=== PATIENT | male | born 1990 | race Caucasian/White ===

== ENCOUNTER 2020-01-24 10:40 | Emergency (ER) | payer SELFPAY ==
[2020-01-24 10:46] VITALS: BP 141/81; PULSE 91; RESP 18; TEMP 37.1; O2SAT 100
--- NOTE | 2020-01-24 10:52 | ED.WOUNDLAC ---
HPI - Wound/Laceration General Chief Complaint: Extremity Injury, Upper Stated Complaint: Left pinky lac Time Seen by Provider: 01/24/20 10:52 Source: patient and RN notes reviewed History of Present Illness HPI narrative: Patient is a 29-year-old male who presents the urgent care with complaints of a laceration to the left pinky finger. Patient states that he was using a punch box tender at home and lacerated the left fifth digit. Patient is unsure if he is up-to-date on his tetanus but does not currently want a tetanus shot. No other acute complaints. No acute distress noted. Patient aware of the plan of care. Related Data Home Medications Medication Instructions Recorded Confirmed No Home Medications 01/24/20 01/24/20 Allergies Allergy/AdvReac Type Severity Reaction Status Date / Time No Known Allergies Allergy Verified 01/24/20 11:12 Review of Systems Review of Systems: Narrative: CONSTITUTIONAL: Denies fever, chills, or sweats. EYES: Denies visual changes, redness, or discharge. ENT: Denies rhinorrhea, congestion, sore throat, or otalgia. CARDIOVASCULAR: Denies chest pain, palpitations, or edema. RESPIRATORY: Denies cough or dyspnea. GASTROINTESTINAL: Denies abdominal pain, nausea, vomiting, or diarrhea. GENITOURINARY: Denies dysuria or hematuria. SKIN: Reports of a laceration to the left fifth digit MUSCULOSKELETAL: Denies back pain, joint pain, or myalgia. NEUROLOGIC: Denies headache, numbness, or weakness. All other systems reviewed are negative, except as documented in HPI. PMFSH Comments At the time of my signature, I reviewed and agree with the nursing past medical, surgical, social, and family history. There is no relevant family history pertinent to the patient complaint. Exam Narrative: Exam Narrative: GENERAL: This is a well-nourished, well-developed patient, in no apparent distress. HEAD: normocephalic, atraumatic. EYES: PERRL. Sclera clear/white. Vision is grossly intact. EARS: External ears normal NOSE: External nose normal with no obvious nasal discharge, nares without redness, no rhinorrhea. THROAT: Mucous membranes moist NECK: Neck supple SKIN: 1.5 cm linear laceration to the distal palmar tuft aspect of the left pinky finger without nailbed involvement NEURO: awake, alert, and oriented to person, place and time. There were no obvious focal neurologic abnormalities. EXTREMITIES: No clubbing, cyanosis, or edema. Left upper extremity capillary refill less than 2 seconds without any obvious deformity. Course Vital Signs Vital signs: Vital Signs Temperature 98.8 F 01/24/20 10:46 Pulse Rate 91 01/24/20 10:46 Respiratory Rate 18 01/24/20 10:46 Blood Pressure 141/81 H 01/24/20 10:46 Pulse Oximetry 100 01/24/20 10:46 Temperature 98.8 F 01/24/20 10:46 Pulse Rate 91 01/24/20 10:46 Respiratory Rate 18 01/24/20 10:46 Blood Pressure 141/81 H 01/24/20 10:46 Pulse Oximetry 100 01/24/20 10:46 Reviewed?patient is informed that they may have pre-hypertension or hypertension based on a blood pressure reading in the department. I recommend the patient call the primary care provider listed on their discharge instructions or a physician of their choice this week to arrange follow-up for further evaluation of possible pre-hypertension or hypertension. Procedures Laceration Laceration 1: Site: hand (Left pinky finger) Side (If applicable): left Size (cm): 1.5 Description: linear Local Anesthetic: lidocaine 1% Amount of anesthesia used (mL): 1.0 Pre-repair: irrigated (Technique care normal saline) ====== Skin Level ====== Skin layer closed with: vicryl, steri strips (4) and other (Ethilon) Size (cm): 4-0 Number of sutures: 3 ====== Subcutaneous Layer ====== ====== Muscle Layer ====== ====== Tendon Layer ====== Dressin.5 cm linear laceration to the palmar tuft aspect of the left p
== END 2020-01-24 11:45 | disposition home or self-care (01) ==
PROVIDERS: Emergency Provider Nurse Practitioner Family
DX: S61.217A Laceration without foreign body of left little finger without damage to nail, initial encounter (principal); W26.8XXA Contact with other sharp object(s), not elsewhere classified, initial encounter
CPT/HCPCS: 12001; 99202; G0463

== ENCOUNTER 2022-06-20 08:32 | Emergency (ER) | payer OTHER, SELFPAY ==
--- NOTE | 2022-06-20 08:40 | ED.URI ---
HPI - URI/Sore Throat General Stated Complaint: Sore Throat Time Seen by Provider: 06/20/22 08:40 History of Present Illness HPI Narrative: patient is a 31-year-old male who presents to urgent care with complaints of a sore throat that started this morning. Patient denies any cough, body aches, fever, headache or ill exposures. Patient has not taken anything [id number] for his symptoms. No other acute complaints. No acute distress noted. Patient aware of the plan of care. Some parts of this dictation were generated by voice recognition software and may contain typographical and/or grammatical inaccuracies. Related Data Home Medications Medication Instructions Recorded Confirmed No Home Medications 01/24/20 01/24/20 Allergies Allergy/AdvReac Type Severity Reaction Status Date / Time No Known Allergies Allergy Verified 01/24/20 11:12 Review of Systems Review of Systems: CONSTITUTIONAL: Denies fever, chills, or sweats. EYES: Denies visual changes, redness, or discharge. ENT: Denies rhinorrhea, congestion, Otalgia. Reports of sore throat CARDIOVASCULAR: Denies chest pain, palpitations, or edema. RESPIRATORY: Denies cough or dyspnea. GASTROINTESTINAL: Denies abdominal pain, nausea, vomiting, or diarrhea. GENITOURINARY: Denies dysuria or hematuria. SKIN: Denies rash or itching. MUSCULOSKELETAL: Denies back pain, joint pain, or myalgia. NEUROLOGIC: Denies headache, numbness, or weakness. All other systems reviewed are negative, except as documented in HPI. PMFSH Comments At the time of my signature, I reviewed and agree with the nursing past medical, surgical, social, and family history. There is no relevant family history pertinent to the patient complaint. Exam Narrative: GENERAL: This is a well-nourished, well-developed patient, in no apparent distress. HEAD: normocephalic, atraumatic. EYES: PERRL. Sclera clear/white. Vision is grossly intact. EARS: External ears normal, auditory canals clear and without drainage, TMs normal without perforation. Hearing grossly intact. NOSE: External nose normal with no obvious nasal discharge, nares without redness, no rhinorrhea. THROAT: Mucous membranes moist, mild erythema to posterior pharynx with mild bilateral tonsillar edema without exudate or ulceration. Moderate postnasal drainage. NECK: Neck supple, non-tender without lymphadenopathy, masses or thyromegaly. CARDIOVASCULAR: Regular rate and rhythm without murmurs, gallops, or rubs. RESPIRATORY: Clear to auscultation. Breath sounds equal bilaterally. No wheezes, rales, or rhonchi. SKIN: warm, intact with no suspicious lesions or rash, good texture and turgor. NEURO: awake, alert, and oriented to person, place and time. There were no obvious focal neurologic abnormalities. EXTREMITIES: No clubbing, cyanosis, or edema. Course Course Level of Care: Express Care Visit Vital Signs Vital signs: Vital Signs Temperature 97.3 F L 06/20/22 08:42 Pulse Rate 92 06/20/22 08:42 Respiratory Rate 16 06/20/22 08:42 Blood Pressure 134/73 06/20/22 08:42 Pulse Oximetry 100 06/20/22 08:42 Oxygen Delivery Room Air 06/20/22 08:42 Temperature 97.3 F L 06/20/22 08:42 Pulse Rate 92 06/20/22 08:42 Respiratory Rate 16 06/20/22 08:42 Blood Pressure 134/73 06/20/22 08:42 Pulse Oximetry 100 06/20/22 08:42 Oxygen Delivery Room Air 06/20/22 08:42 reviewed MDM - URI/Sore Throat MDM Narrative Medical decision making narrative: Due to lack of resources at the facility, we are unable to run a rapid strep test. educated the patient on strep culture and we will call within 72 hours if culture is positive antibiotics are necessary. Advised the patient use Tylenol/ ibuprofen as needed. Take a daily antihistamine such as Claritin or Zyrtec. Use a humidifier at night and increase water intake. Follow-up with your PCP within 2-5 days or for worsening symptoms or failure to improve. Diff
[2022-06-20 08:42] VITALS: BP 134/73; PULSE 92; RESP 16; TEMP 36.3; O2SAT 100
== END 2022-06-20 09:13 | disposition home or self-care (01) ==
PROVIDERS: Emergency Provider Nurse Practitioner Family; PCP Family Medicine
DX: J02.9 Acute pharyngitis, unspecified (principal)
CPT/HCPCS: 87081; 87147; 99213; G0463